=== PATIENT | male | born 1960 | race Caucasian/White ===

== ENCOUNTER 2021-11-02 20:35 | Inpatient (IN) | payer OTHER ==
[~2021-11-02] VITALS: Ht 180.3 cm; Wt 94.5 kg
[2021-11-02 20:00] VITALS: BP 128/66
[2021-11-02 21:29] LABS: HEMOGLOBIN 13.2 gm/dL (14.0-18.0); MCH 28.5 pg (26.0-34.0); MCHC 32.3 g/dL (28.0-37.0); MCV 88.4 fL (80.0-100.0); RBC 4.64 mil/uL (4.50-6.00); RDW 13.8 % (10.5-14.5); WBC 13.1 thou/uL (4.0-11.0)
[2021-11-02 21:34] LABS: CALCIUM 8.1 mg/dL (8.5-10.1); CREATININE 1.5 mg/dL (0.7-1.3); POTASSIUM 4.5 mmol/L (3.5-5.1)
[2021-11-02 21:48] LABS: ALBUMIN 2.6 g/dL (3.4-5.0); TOTAL BILIRUBIN 0.3 mg/dL (0.2-1.0); TOTAL PROTEIN 6.4 g/dL (6.4-8.2)
[2021-11-02 23:15] VITALS: BP 130/62
[2021-11-02 23:20] LABS: URINE BILIRUBIN NEGATIVE (Negative); URINE BLOOD 2+ (Negative); URINE CLARITY CLEAR; URINE COLOR YELLOW; URINE GLUCOSE-RANDOM* 3+ (Negative); URINE KETONES 2+ (Negative); URINE LEUKOCYTES-REFLEX NEGATIVE (Negative); URINE NITRITE-REFLEX NEGATIVE (Negative); URINE PROTEIN (DIPSTICK) 1+ (Negative); URINE SPECIFIC GRAVITY 1.025 (1.005-1.035); URINE UROBILINOGEN 0.2 E.U./dl (0.2-1.0)
[2021-11-02 23:29] LABS: SQUAMOUS 0-3 Few /LPF (0-3)
[2021-11-02 23:30] LABS: BACTERIA-REFLEX 1-9 Few /HPF (None Seen); CELLULAR CASTS 4-10 Moderate /LPF (None Seen); CRYSTALS None Seen /LPF (None Seen); HYALINE CASTS 4-10 Moderate /LPF (None Seen); MUCUS 0-3 Light strn/LPF (None Seen); URINE RBC 3-10 Few /HPF (NONE SEEN); URINE WBC-REFLEX 0-5 Rare /HPF (0-5)
[2021-11-03] MEDS ORDERED: PRAVASTATIN SOD40 MG PO (01:03)
[2021-11-03] MEDS ORDERED: LEVO-T50 MCG PO (01:03)
[2021-11-03] MEDS ORDERED: LISINOPRIL10 MG PO (01:04)
[2021-11-03] MEDS ORDERED: HUMALOG100 UNIT/1 SUBQ (01:05)
[2021-11-03] MEDS ORDERED: NOVOLIN R100 UNIT/3 SUBQ (01:06)
--- NOTE | 2021-11-03 01:25 | NUR ---
Pt. is a direct admit from [facility]. Dr. Madrid and RadhamesSECURITY LEAD notified of arrival. Denies any chest pain though he stated he has chest tightness at times but none currently. O2 sat of 99% in RA. COVID PCR sent to lab per order. Voided per urinal and urine specimen sent to lab. EKG obtained and labs drawn. Dr. Madrid aware of elevated troponin. ASA 325 mg and lipitor 80 mg given to pt. He became nauseous and dry heaving after taking pills. Zofran given. IVF started and IV ABT given. Lopressor 5 mg IV, lasix 20 mg given x1 then lovenox SQ. Pt. kept NPO since LA for heart cath in am. Med rec reconciled and consents signed by pt.
[2021-11-03 04:23] VITALS: BP 112/55
[2021-11-03 07:18] LABS: HEMATOCRIT 39.6 % (42.0-52.0); HEMOGLOBIN 12.9 gm/dL (14.0-18.0); MCH 28.8 pg (26.0-34.0); MCHC 32.5 g/dL (28.0-37.0); MCV 88.7 fL (80.0-100.0); RBC 4.47 mil/uL (4.50-6.00); RDW 14.1 % (10.5-14.5); WBC 10.5 thou/uL (4.0-11.0)
[2021-11-03 07:33] LABS: CALCIUM 8.2 mg/dL (8.5-10.1); CREATININE 1.7 mg/dL (0.7-1.3); POTASSIUM 4.6 mmol/L (3.5-5.1)
[2021-11-03 07:46] LABS: CHOLESTEROL 132 mg/dL (<200); HDL CHOLESTEROL 32 mg/dL (>40); LDL CHOLESTEROL 70 mg/dL (<100); TC:HDL 4.1 Ratio (Not establshd); TRIGLYCERIDE 150 mg/dL (<150); VLDL 30 mg/dL (<40)
[2021-11-03 08:00] VITALS: BP 119/61
--- NOTE | 2021-11-03 08:00 | EKG ---
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 : 1960 Requested By: Gerardo Madrid Order Number: [id number] MD: Wilfredo Hinds Measurements Intervals [place] Rate: 87 P: 50 DC: 159 QRS: -56 QRSD: 171 T: 112 QT: 433 QTc: 521 Interpretive Statements Sinus rhythm Probable left atrial enlargement Left bundle branch block No previous ECG available for comparison Electronically Signed On 11-03-2021 8:00:04 ENGINEER OPERATIONS AND MAINTENANCE by Wilfredo Hinds [email or web address] <ELECTRONICALLY SIGNED> By: Wilfredo Hinds MD, [facility] 11/03/21 08 24 24 Wilfredo Hinds MD, FAC /EPI
--- NOTE | 2021-11-03 08:05 | EKG ---
[place] [address] [facility] [place] [address] ELECTROCARDIOGRAM REPORT Name: DAVID PUTNAM Room #: 207-[facility] IN M.R.#: [id number] Admission: 11/02/21 Attend Phys: Sandor Solis MD Discharge: Date of : 60 Report #: [id number] [facility] Test Date: 2021-11-03 Test Time: 07:55:50 Pat Name: DAVID PUTNAM Department: Room: 207 P Gender: M Caser Up: GLENDY : 1960 Requested By: Gerardo Madrid Order Number: [id number] MD: Wilfredo Hinds Measurements Intervals [place] Rate: 82 P: 71 VA: 166 QRS: -60 QRSD: 176 T: 111 QT: 462 QTc: 540 Interpretive Statements Sinus rhythm Probable left atrial enlargement Left bundle branch block Compared to ECG 11/02/2021 21:25:39 No significant changes Electronically Signed On 11-03-2021 8:04:55 SURFACING TECHNICIAN by Wilfredo Hinds [email or web address] <ELECTRONICALLY SIGNED> By: Wilfredo Hinds MD, [facility] 11/03/21 [phone] Wilfredo Hinds MD, FACC /EPI
[2021-11-03 10:23] LABS: CALCIUM 8.2 mg/dL (8.5-10.1); CREATININE 1.7 mg/dL (0.7-1.3); POTASSIUM 4.1 mmol/L (3.5-5.1)
--- NOTE | 2021-11-03 12:49 | 2DMMODE ---
[facility] [place] [address] 2 D/M-MODE ECHOCARDIOGRAM Name: DAVID PUTNAM Room #: 207-P ADM IN .R.#: [id number] Admission: 11/02/21 Attend Phys: Sandor Solis MD Discharge: Date of : 60 Report #: [id number] THIS REPORT FOR: cc: FAM - Family physician unknown FAM - Family physician unknown Reji Mcneil MD ~ APPROVED REPORT Study performed: 11/03/2021 09:17:53 EXAM: Comprehensive 2D, Doppler, and color-flow Echocardiogram Patient Location: In-Patient Room #: 207 Status: routine BSA: 2.10 HR: 84 bpm BP: 132/66 mmHg Rhythm: NSR Other Information Study Quality: Adequate Indications Elevated Troponin Chest Pain 2D Dimensions IVSd: 10.95 (7-11mm) LVOT Diam: 20.86 (18-24mm) LVDd: 65.64 mm PWd: 11.32 (7-11mm) Ascending Ao: 28.16 (22-36mm) LVDs: 52.41 (25-40mm) Left Atrium: 50.58 (27-40mm) Aortic Root: 26.90 mm Left Ventricle Left ventricle is dilated. Regional wall motion abnormalities cannot be excluded. There is normal left ventricular wall thickness. Left ventricular systolic function is mild to moderately decreased. LVEF is 40-45%. This study is not technically sufficient to allow evaluation of the LV diastolic function. Right Ventricle The right ventricle is normal size. The right ventricular systolic function is normal. [facility] [address] [address] 2 D/M-MODE ECHOCARDIOGRAM Name: DAVID PUTNAM Room #: 207-P [facility] IN ..#: [id number] Admission: 11/02/21 Attend Phys: Sandor Solis MD Discharge: Date of : 60 Report #: [id number] Atria Left atrium is dilated. Right atrium is at the upper limits of normal. Aortic Valve The aortic valve is normal in structure. No aortic regurgitation is present. There is no aortic valvular stenosis. Mitral Valve The mitral valve is normal in structure. Mild mitral regurgitation. No evidence of mitral valve stenosis. Tricuspid Valve The tricuspid valve is normal in structure. There is no tricuspid valve regurgitation noted. Pulmonic Valve The pulmonary valve is normal in structure. There is no pulmonic valvular regurgitation. Great Vessels The aortic root is normal in size. Pericardium There is no pericardial effusion. <Conclusion> Technically difficult study. Left ventricular systolic function is mild to moderately decreased. Regional wall motion abnormalities cannot be excluded. The right ventricle is normal size. Left atrium is dilated. The aortic valve is normal in structure. Mild mitral regurgitation. <ELECTRONICALLY SIGNED> By: Reji Mcneil MD 11/03/21 1249 1249 Reji Mcneil MD /INF
--- NOTE | 2021-11-03 16:17 | NUR ---
CHART REVIEWED AND DISCUSSED WITH CARET TEAM. CM MET WITH PT X 2 THIS DAY ALTHOUGHT PT OFF UNIT AND ONCE RETURNED NURSING IN WITH PT FOLLOWING PROCEDURE. CM WILL ATTEMPT TO REVISIT TOMORROW FOR DC PLANNING.
--- NOTE | 2021-11-03 16:26 | CATHLAB ---
[facility] [address] [place] [address] INVASIVE PROCEDURE REPORT Name: DAVID PUTNAM Room #: 207-P ADM IN M.R.#: [id number] Admission: 11/02/21 Attend Phys: Sandor Solis MD Discharge: Date of : 60 Report #: [id number] THIS REPORT FOR: cc: FAM - Family physician unknown FAM - Family physician unknown Gerardo Madrid MD [facility] ~ APPROVED REPORT Study performed: 11/03/2021 10:03:58 Patient Details Patient Status: In-Patient Room #: 207 The patient is a 61 year-old male Event Personnel Gerardo Madrid Occupancy Specialist, Roberto Gonzalez RN RN, Kirsty Van RTR Monitor, Lisa Luna Partnoy, Nancy RTR, DIRECTOR PUBLIC POLICY Monitor Procedures Performed Art Access - R femoral artery* Selwyn Access - R femoral vein Right and Left Heart Cath w/or w/o Coronarie [id number] [facility] RADHA Place w/wo Plasty Single LAD [id number] Hemostasis w/ Mynx Hemostasis with Manual pressure Aortogram Abdominal Peripheral Angio 723059 25714 Initial Mod Sed Same Phys/QHP Gr5y 557681 61440 Mod Sed Same Phys/QHP Ea 060225 Indication Chest pain Procedure Narrative The Right Groin^ was infiltrated with 1% Lidocaine subcutaneous anesthesia. A PINNACLE 6FR Sheath #[id number] sheath was inserted into the RFA. Coronary angiography was performed using coronary diagnostic catheters. The right coronary system was accessed and visualized with a JR4 catheter. The left coronary system was accessed and visualized with a JL4 catheter. The left ventricle was accessed and visualized with a PIGTAIL catheter. Left ventriculogram was performed in MANN projection. An aortogram of the abdominal aorta was performed. Pre-demployment femoral angiogram was performed . Closure device was deployed with a 6 Fr MYNXGRIP 6/7F #[id number]. Hemostasis was obtained with manual pressure following sheath removal without any complications. The patient tolerated the procedure well and there were no complications associated with the procedure. There was no [facility] [address] [place] [address] INVASIVE PROCEDURE REPORT Name: DAVID PUTNAM Room #: 207-P [facility]#: [id number] Admission: 11/02/21 Attend Phys: Sandor Solis MD Discharge: Date of : 60 Report #: [id number] hematoma. Intraoperative Conscious Sedation Sedation start time: 10:46 Case end Time: 12:20 Fentanyl 50 mcg Versed 1 mg Fluoro Time: 21.10 minutes Dose: DAP 49545.60 cGycm2 3768 mGy Contrast Type and Amount: Visipaque 255 ml Hemodynamics The right atrial mean pressure is 12 mmHg. The right ventricular pressure is 69/12 mmHg. The pulmonary artery pressure is 61/21 mmHg with a mean of 37 mmHg. The mean pulmonary capillary wedge pressure is 21 mmHg. The aortic pressure is 113/52 mmHg with a mean of 73 mmHg. The left ventricular pressure is 138/9 mmHg with a mean of mmHg. The left ventricular end diastolic pressure is 31 mmHg. The cardiac output using thermo method is 6.35 L/min. The cardiac index using thermo method is 3.00 L/min/m2. PCI Technique Lesion Percutaneous coronary intervention was performed on the mid left anterior descending artery segment. A LAUNCHER 6FR EBU 3.75 #[id number] Guide Catheter was used to engage the ostium. A Luge Wire .014 x 182CM #[id number] Interventional Guidewire was used to cross the lesion. BALLOON DILATION A Balloon catheter Sprinter OTW 2.25 x 15 #[id number] was inserted and inflated up to 18.00atm for 49seconds. Additional Inflation: 20.00atm for 46seconds. STENT DEPLOYMENT A drug-eluting stent RESOLUTE MARK OTW 2.25 X 8 #[id number] was inserted and inflated up to 20.00atm for 33seconds. A second drug-eluting stent Resolute [place] OTW 2.25 x 8 was inserted and inflated distal to first Resolute [place] OTW 2.25 x 8 up to 16 kit for 25 seconds Additional Inflation: 20 kit for 19 seconds COMMENTS The Resolute [place] OTW 2.25 x 12 stent delivery system balloon was used to dilate the mid LAD before deploying the stents in the mid LAD. Inflation: 18 kit for 24 seconds Additional inflation: 18 kit for [address] [address] INVASIVE PROCEDURE REPORT Name: INDYDAVID C Room #: 207-P [facility] IN ..#: [id number] Admission: 11/02/21 Attend Phys: Sandor Solis MD Discharge: Date of : 60 Report #: [id number] Additional inflation: 20 kit for 28 seconds Additional inflation: 20 kit for 18 seconds Additional inflation: 20 kit for 18 seconds PCI Technique Lesion 2 Percutaneous Coronary Intervention was performed on the proximal left anterior descending artery segment. Percutaneous coronary intervention was performed on the proximal left anterior descending artery segment. A LAUNCHER 6FR EBU 3.75 #[id number] Guide Catheter was used to engage the ostium. A Luge Wire .014 x 182CM #[id number] Interventional Guidewire was used to cross the lesion. Stent Deployment A drug-eluting stent RESOLUTE MARK OTW 2.25 X 12 #[id number] was inserted and inflated up to 16.00atm for 18seconds. Additional Inflation: 20.00atm for 17seconds. Conclusion #1 Successful PTCA stent of a high-grade proximal and proximal mid vessel LAD stenoses. Moderately calcified vessel diabetic in nature extending to the apex. Proximally and 2.25 x 12 resolute stent postdilated 2.5 mm. Then the mid vessel lesions which were subtotaled dilated and then stents placed 2.5 x 8 x 2 in sequence in the mid LAD JABARI grade III flow with marked improvement in the luminal diameter and flow in this LAD system. #2 left main moderately calcified with mild disease giving rise to LAD and circumflex #3 circumflex OM also moderately diseased and calcified nondominant first OM 60 to 70% ostial off the circumflex second OM 70% distal to this circumflex takeoff these are to fairly well-preserved distal OM branches which have moderate distribution. No definite target for intervention. #4 dominant right coronary with mild irregularities and calcification the mid vessel lesion 50 to 60% giving rise to PDA RUBIA and then a mid PDA lesion of 90% with moderate distribution distally. May be a target for later intervention. This is anatomically dominant system. #5 normal left ventricular size with anterior apical and inferior apical hypokinesis EF 45% range #6 abdominal aortogram revealing a normal abdominal aorta without aneurysm renal arteries appear to be widely patent. #7 successful right heart catheterization with cardiac output by thermodilution. See above hemodynamics. Recommendations and plan: Continue aggressive risk factor modification. Dual antiplatelet therapy has been initiated. [facility] [place] [address] [place] [address] INVASIVE PROCEDURE REPORT Name: INDYDAVID Angie Room #: 207-P [facility]#: [id number] Admission: 11/02/21 Attend Phys: Sandor Solis MD Discharge: Date of : 60 Report #: [id number] Diuresis has been performed with marked elevations in pulmonary pressures. IV Lasix. Will need aggressive monitoring. <ELECTRONICALLY SIGNED> By: Gerardo Madrid MD, FACC 11/03/215 24 24 Gerardo Madrid MD, FACC /INF
--- NOTE | 2021-11-03 18:03 | NUR ---
ASSESSMENT CHARTED - MEDS PER MAR - WALLY DIET AND FLUIDS. NO CO'S OF PAIN OR NAUSEA. PT TO THE PROFESSIONAL ENGINEER THIS AM - STENTS X 3 - VSS POST CATH / GROIN SITE C/D/I. PT BLOOD GLUCOSE THIS AM ELEVATED - DR JACKMAN NOTIFIED AND ORDERS GIVEN - BLOOD SUGAR REMAINED HIGH WHILE IN THE PROFESSIONAL ENGINEER - POST CATH PT TO THE UNIT AND INSULIN DRIP STARTED. BLOOD SUGAR STEADILY COMING DOWN INTO DESIRED RANGE INSULIN TITRATED PER PROTOCOL. NO CO'S AT THE PRESENT TIME - APPEARS TO BE RESTING COMFORTABLY.
[2021-11-03 20:10] VITALS: BP 96/54
[2021-11-03 21:55] LABS: CALCIUM 8.1 mg/dL (8.5-10.1); CREATININE 1.5 mg/dL (0.7-1.3); POTASSIUM 3.5 mmol/L (3.5-5.1)
[2021-11-03 23:54] VITALS: BP 109/70
--- NOTE | 2021-11-04 00:59 | NUR ---
2030 NOTIFIED MARIA LUZ RPG DEVELOPER OF BLOOD SUGAR DECREASE ON INSULIN GTT WITH NO ORDERS FOR D5. ORDERS FOR D5 1/2 NS AT 50 CC AND FOLLOW GTT PROTOCOL. LAB ORDERED. ANXIETY MEDICATION ORDERED. PATIENT DENIES COMPLAINTS OF PAIN.
[2021-11-04 01:06] LABS: GLYCOHEMOGLOBIN (HGB A1C) 9.6 % (4.8-5.6)
[2021-11-04 03:15] VITALS: BP 105/53
[2021-11-04 05:12] LABS: ALBUMIN 2.4 g/dL (3.4-5.0); CALCIUM 7.6 mg/dL (8.5-10.1); CREATININE 1.3 mg/dL (0.7-1.3); POTASSIUM 3.3 mmol/L (3.5-5.1); TOTAL BILIRUBIN 0.4 mg/dL (0.2-1.0)
--- NOTE | 2021-11-04 05:51 | NUR ---
PATIENT WITH HIGH ANXIETY. HYDROXIZINE DID NOT WORK. CALLED DEDICATED TRUCK DRIVER AT 0215 AND ONE TIME DOSE OF XANAX GIVEN. PATIENT CALMER AND SLEEPING AT TIMES NOW. REMAINS WITH INSULIN GTT WITH HOURLY BLOOD SUGARS. RIGHT GROIN SITE C/D/I WITHOUT HEMOTOMA, SOFT AT SITE. CONTINUE TO ASSES CLOSELY.
[2021-11-04 07:45] VITALS: BP 110/67
--- NOTE | 2021-11-04 08:08 | EKG ---
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 : 1960 Requested By: Jennifer Sewell Order Number: [id number] : Sebastian Norton Measurements Intervals [place] Rate: 78 P: 56 CT: 157 QRS: -54 QRSD: 185 T: 119 QT: 463 QTc: 528 Interpretive Statements Sinus rhythm Probable left atrial enlargement Left bundle branch block Compared to ECG 11/03/2021 07:55:50 No significant changes Electronically Signed On 11-04-2021 8:08:50 RESIDENTIAL DIRECTOR by Sebastian Norton [email or web address] <ELECTRONICALLY SIGNED> By: Sebastian Norton MD, [facility] 11/04/21807 6 6 Sebastian Norton MD, FACC /EPI
[2021-11-04 11:15] VITALS: BP 112/72
--- NOTE | 2021-11-04 15:09 | NUR ---
PATIENT ADMITTED FOR NSTEMI. CHART REVIEWED AND DISCUSSED WITH CARE TEAM. CM MET WITH PT THIS DAY. PT VOICED HE LIVES AT HOME ALONE. PT WITH RIGHT BELOW THE KNEE AMP. PT REPORTS HE HAS A W/C HE USED IN THE MORNING. SELF PROPELS AND ABLE TO TRANSFER SELF. 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 PT DENIES HH/SNF/REHAB IN THE PAST. PT REPORTS HE HAS A SHOWER CHAIR AND USES WITHOUT DIFF. PT DENYING NEEDS ONCE MEDICALLY STABLE TO DC. PT DOES NOT HAVE PT/OT ORDERS. PT WILL MOST LIKELY DC SUNDAY. HE WILL HAVE NO NEEDS. CM FOLLOWING FOR DC PLANNING.
[2021-11-04 16:23] VITALS: BP 100/65
--- NOTE | 2021-11-04 17:36 | NUR ---
ASSESSMENT CHARTED - MEDS PER NOV - PT STARTED ON GLARGINE INSULIN AT 1400 AND INSULIN DRIP DISCONTINUED @ 1500 - BLOOD SUGAR PRIOR TO DINNER 101 AND LISPRO GIVEN ORDERED. PT HAS BEEN RESTING IN BED TODAY - REMAINS DROWSY BUT EASILY AWOKEN. WALLY DIET AND FLUIDS - NO CO'S OF PAIN OR NAUSEA. GROIN SITE STABLE. NO CO'S AT THE PRESENT TIME.
[2021-11-04 20:15] VITALS: BP 102/67
[2021-11-04 22:11] LABS: HEMOGLOBIN 13.4 gm/dL (14.0-18.0); MCH 28.7 pg (26.0-34.0); MCHC 33.4 g/dL (28.0-37.0); MCV 85.9 fL (80.0-100.0); PLATELET COUNT 341 thou/uL (150-400); RBC 4.66 mil/uL (4.50-6.00); RDW 13.8 % (10.5-14.5); WBC 9.2 thou/uL (4.0-11.0)
[2021-11-04 23:35] LABS: ABSOLUTE NEUTROPHILS 6.7 thou/uL (1.4-8.2)
[2021-11-04 23:36] LABS: LARGE PLATELETS FEW; PLATELET ESTIMATE NORMAL
[2021-11-05 03:36] LABS: HEMATOCRIT 38.5 % (42.0-52.0); HEMOGLOBIN 12.7 gm/dL (14.0-18.0); MCH 28.8 pg (26.0-34.0); MCV 87.1 fL (80.0-100.0); RBC 4.42 mil/uL (4.50-6.00); WBC 7.4 thou/uL (4.0-11.0)
[2021-11-05 04:45] VITALS: BP 122/80
[2021-11-05 05:39] LABS: CALCIUM 8.1 mg/dL (8.5-10.1); CREATININE 1.1 mg/dL (0.7-1.3); POTASSIUM 3.1 mmol/L (3.5-5.1)
[2021-11-05 07:45] VITALS: BP 108/66
--- NOTE | 2021-11-05 08:32 | NUR ---
ASSESSMENTS CHARTED, LETHARGIC AND SLEEPY THRU THE NOC KEPT PULLING MONITOR LEADS OFF, STATES HE IS MORE ALERT THIS AM AND FEELS RESTED, NO C/O PAIN WILL CONT TO MONITOR PER PPOC
[2021-11-05] MEDS ORDERED: LIPITOR80 MG PO (10:34)
[2021-11-05] MEDS ORDERED: EFFIENT10 MG PO (10:34)
[2021-11-05] MEDS ORDERED: COZAAR 25 MG TA25 M2 PO (10:35)
[2021-11-05] MEDS ORDERED: ASPIRIN325 PO (10:35)
[2021-11-05] MEDS ORDERED: COREG3.125 MG PO (10:35)
[2021-11-05] MEDS ORDERED: LANTUS SUBQ (10:35)
[2021-11-05] MEDS ORDERED: HUMALOG100 UNIT/1 SUBQ (10:36)
[2021-11-05 13:21] VITALS: BP 108/66
--- NOTE | 2021-11-05 13:49 | NUR ---
PATIENT BEING DISCHARGED HOME. DISCHARGE EDUCATION DONE AT BEDSIDE, NO QUESTIONS OR CONCERNS AT TIME OF DC. TELE AND IV REMOVED. TAKEN BY WHEELCHAIR TO CAR WHERE A FRIEND AWAITS.
--- NOTE | 2021-11-07 12:23 | HC ---
[facility] [address] [place] [address] CONSULTATION Name: ARUN PUTNAM Room #: 207-[facility] IN .R.#: [id number] Admission: 11/02/21 Attend Phys: Sandor Solis MD Discharge: 11/05/21 Date of : 60 Report #: [id number] THIS REPORT FOR: cc: FAM - Family physician unknown FAM - Family physician unknown Gerardo Madrid MD [facility] ~ cc: Arun Momin DATE OF SERVICE: 11/02/2021 REFERRING PHYSICIAN: Dr. Arun Momin in [facility]. HISTORY OF PRESENT ILLNESS: The patient is a 61-year-old male who was transferred here from [facility] for a markedly elevated troponin consistent with stuttering infarct and completed infarct. Still having minimal discomfort, new left bundle branch block on the EKG, unknown duration. Marked elevation of troponin there and our high sensitivity here, his preliminary around 75,000. He has had worsening cough and cold and sound more like a viral, although COVID was negative for the last week or so. He is noncompliant and lives alone. He is supposed to have been on some insulin and lisinopril and medicines for his psoriasis. There may be some financial issue. He has Medicare and disability. He had a mild metabolic acidosis, severe diabetic ketoacidosis, was treated with IV fluids, and hyperkalemia. This seemed to have resolved on our laboratory work. Chest x-ray is pending. White count was elevated at 14,000. His lactate was 6.9. His creatinine was 2.8, but this has improved here and our creatinine here was 1.5. He does not have prior documented cardiac history. PAST MEDICAL HISTORY: Positive for diabetes, poorly controlled; history of diabetic foot ulcer; right tib-fib fracture with artem placement; left below-knee amputation; hypertension; hypercholesterolemia; MRSA; psoriasis and now with infarct. SOCIAL HISTORY: No current alcohol or tobacco use. He states he lives somewhat independently. He has 1 son in [place]. FAMILY HISTORY: No family history of premature coronary artery disease. REVIEW OF SYSTEMS: He is having some nausea tonight. There is a left bundle on our EKG. PHYSICAL EXAMINATION: VITAL SIGNS: Blood pressure is 130s/60s, pulse is 80. HEENT: Eyes reveal xanthelasmas. Pharynx is clear. NECK: Shows preserved upstrokes without JVD. There is question of some mild JVD. [facility] [address] [place] [address] CONSULTATION Name: ARUN PUTNAM Room #: 207-P [facility] IN [facility].#: [id number] Admission: 11/02/21 Attend Phys: Sandor Solis MD Discharge: 11/05/21 Date of : 60 Report #: [id number] LUNGS: Clear. There are crackles in the bases bilaterally. Decreased excursion. CARDIAC: S1, S2. Distant heart tones. ABDOMEN: Slightly protuberant, nontender. EXTREMITIES: Revealed left lower extremity below-knee amputation, well healed stump. Right lower extremity, there is significant psoriasis on the extensor surfaces of the knees, but no open ulcers. There is question of a right diabetic foot ulcer. NEUROLOGIC: Intact. MUSCULOSKELETAL: Generalized arthritic changes with the left below-knee amputation. ASSESSMENT: 1. Myocardial infarction with apparent new left bundle marked elevation in troponin. This has been occurring now for the last 24 hours. He is pain free. 2. Suspected recent infarct with moderate ischemic cardiomyopathy. No significant heart failure symptomatology currently. 3. Diabetes with question of diabetic ketoacidosis, initially treated at [facility] and improved now. 4. Acute kidney is on top of chronic kidney disease with creatinine now decreased to 1.5 from 2.8. 5. Hypertension. 6. Hypercholesterolemia. 7. Psoriasis. RECOMMENDATIONS AND PLAN: Lovenox was given earlier and tonight. We will hold the a.m. aspirin, Lipitor and beta blockers. We will proceed to the catheterization lab in the a.m., delineate the anatomy. I suspect this is somewhat of a completed infarct with a new left bundle, may be still some indication for intervention here. Risks, benefits and alternatives were discussed with him. <ELECTRONICALLY SIGNED> By: Gerardo Madrid MD, FACC 11/07/21 1223 2201 [id number] Gerardo Madrid MD, FACC /nt
== END 2021-11-05 14:01 | disposition home or self-care (01) | DRG 246 ==
LOC: 2N 20:35
PROVIDERS: Internal Medicine Cardiovascular Disease; Nurse Practitioner Adult Health; Nurse Practitioner Family; ADMIT Hospitalist; ATTEND Hospitalist
DX: I21.4 Non-ST elevation (NSTEMI) myocardial infarction (principal); E10.10 Type 1 diabetes mellitus with ketoacidosis without coma; N17.0 Acute kidney failure with tubular necrosis; I25.5 Ischemic cardiomyopathy; Z20.822 Contact with and (suspected) exposure to COVID-19; E78.00 Pure hypercholesterolemia, unspecified; Z86.14 Personal history of Methicillin resistant Staphylococcus aureus infection; N18.9 Chronic kidney disease, unspecified; L40.9 Psoriasis, unspecified; E78.5 Hyperlipidemia, unspecified; E03.9 Hypothyroidism, unspecified; E10.621 Type 1 diabetes mellitus with foot ulcer; E10.51 Type 1 diabetes mellitus with diabetic peripheral angiopathy without gangrene; I12.9 Hypertensive chronic kidney disease with stage 1 through stage 4 chronic kidney disease, or unspecified chronic kidney disease; E10.22 Type 1 diabetes mellitus with diabetic chronic kidney disease; I25.10 Atherosclerotic heart disease of native coronary artery without angina pectoris; Z89.512 Acquired absence of left leg below knee; Z83.3 Family history of diabetes mellitus; Z82.49 Family history of ischemic heart disease and other diseases of the circulatory system; Z79.4 Long term (current) use of insulin; Z79.899 Other long term (current) drug therapy
CPT/HCPCS: 10081